=== PATIENT | male | born 1995 | race Caucasian/White ===

== ENCOUNTER → 2018-05-29 | Outpatient (CLI) | payer BC ==
--- NOTE | 2018-05-29 11:13 | US ---
EXAMINATION TYPE: US liver DATE OF EXAM: 05/29/2018 COMPARISON: NONE CLINICAL HISTORY: R74.8 Abnormal Liver Enzymes. Elevated liver enzymes EXAM MEASUREMENTS: Liver Length: 25.1 cm Gallbladder Wall: 0.3 cm CBD: 0.4 cm Right Kidney: 14.4 x 5.0 x 6.2 cm Extreme technical limitations due to patient's body habitus and overlying bowel content Pancreas: Obscured by bowel gas Liver: enlarged, unable to penetrate Gallbladder: stone = 1.8cm Evidence for sonographic Perla's sign: no CBD: limited evaluation Right Kidney: no evidence of hydronephrosis as visualized IMPRESSION: Limited exam. Coarse echotexture within the liver may be due to hepatic steatosis, hepato cellular disease, liver is enlarged. Cholelithiasis, borderline gallbladder wall thickening.
== END | disposition home or self-care (01) ==
LOC: RADUSWWP 09:38
PROVIDERS: ATTEND Internal Medicine
DX: R16.0 Hepatomegaly, not elsewhere classified (principal); K80.20 Calculus of gallbladder without cholecystitis without obstruction
CPT/HCPCS: 76705

== ENCOUNTER 2020-01-01 22:37 | Observation (INO) | payer BC, OTHER ==
--- NOTE | 2020-01-01 23:37 | XR ---
EXAMINATION TYPE: XR chest 2V DATE OF EXAM: 01/01/2020 COMPARISON: NONE HISTORY: Cough and fever TECHNIQUE: FINDINGS: There are patchy bilateral pulmonary airspace infiltrates. Heart and mediastinum are normal . There are no hilar masses. There is no sign of pleural effusion. IMPRESSION: Bilateral patchy pneumonia. Normal heart.
[2020-01-02] MEDS ORDERED: ACETAMINOPHEN TAB 500 MG TAB PO STA (00:18)
[2020-01-02 00:55] LABS: Glucose,Whole Blood 107 mg/dL (75-99)
[2020-01-02 01:13] LABS: Anisocytosis Slight; Basophils # (A) 0.1 k/uL (0-0.2); Basophils % (A) 2 %; Eosinophils # (A) 0.1 k/uL (0-0.7); Eosinophils % (A) 1 %; HCT 43.9 % (39.0-53.0); HGB 14.2 gm/dL (13.0-17.5); Lymphocytes # (A) 1.3 k/uL (1.0-4.8); Lymphocytes % (A) 29 %; MCH 24.4 pg (25.0-35.0); MCHC 32.3 g/dL (31.0-37.0); MCV 75.6 fL (80.0-100.0); Mean Platelet Volume 6.8; Microcytosis Slight; Monocytes # (A) 0.2 k/uL (0-1.0); Monocytes % (A) 5 %; Neutrophils # (A) 2.7 k/uL (1.3-7.7); Neutrophils % (A) 60 %; Platelet Count 169 k/uL (150-450); RBC 5.81 m/uL (4.30-5.90); WBC 4.4 k/uL (3.8-10.6)
[2020-01-02 01:26] LABS: ALT 82 U/L (4-49); AST 87 U/L (17-59); African American GFR (CKD) >90 (>60 ml/min/1.73 sqM); Albumin 3.8 g/dL (3.5-5.0); Alkaline Phosphatase 83 U/L (38-126); Anion Gap 6 mmol/L; Blood Urea Nitrogen 9 mg/dL (9-20); C Reactive Protein 16.7 mg/L (<10.0); Calcium 8.5 mg/dL (8.4-10.2); Carbon Dioxide 26 mmol/L (22-30); Chloride 104 mmol/L (98-107); Glucose 107 mg/dL (74-99); LDH 690 U/L (313-618); Non-African American GFR(CKD) >90 (>60 ml/min/1.73 sqM); Potassium 4.2 mmol/L (3.5-5.1); Sodium 136 mmol/L (137-145); Total Bilirubin 0.9 mg/dL (0.2-1.3); Total Protein 6.9 g/dL (6.3-8.2)
[2020-01-02 01:27] LABS: D-Dimer 0.29 mg/L FEU (<0.60); INR 0.9 (<1.2); Partial Thromboplastin Time 24.6 sec (22.0-30.0); Prothrombin Time 9.9 sec (9.0-12.0)
--- NOTE | 2020-01-02 02:01 | ED ---
General Adult HPI - General Source: patient, RN notes reviewed Mode of arrival: wheelchair Limitations: no limitations <Tyler Melgar - Last Filed: 01/02/20 02:13> <Trent Torres - Last Filed: 01/04/20 10:55> - General Chief complaint: Fever Stated complaint: fever, cough, sob Time Seen by Provider: 01/02/20 00:00 - History of Present Illness Initial comments: 24-year-old male with a past medical history of morbid obesity, asthma presents to the emergency room for a chief question shortness of breath. Patient reports his father is covid positive. He states that over the weekend he started to have a fever. States that he also developed a dry cough. Today however patient became short of breath. Feels like his asthma is acting up. Denies any sensation of wheezing however. Denies any chest pain.Patient has no other complaints at this time including shortness of breath, chest pain, abdominal pain, nausea or vomiting, headache, or visual changes. (Tyler Melgar) - Related Data Allergies Allergy/AdvReac Type Severity Reaction Status Date / Time No Known Allergies Allergy Verified 01/02/20 06:43 Review of Systems ROS Other: All systems not noted in ROS Statement are negative. <Tyler Melgar - Last Filed: 01/02/20 02:13> ROS Other: All systems not noted in ROS Statement are negative. <Trent Torres - Last Filed: 01/04/20 10:55> ROS Statement: Those systems with pertinent positive or pertinent negative responses have been documented in the HPI. Past Medical History Past Medical History: Asthma, GERD/Reflux History of Any Multi-Drug Resistant Organisms: None Reported Past Surgical History: Cholecystectomy Past Psychological History: No Psychological Hx Reported Smoking Status: Never smoker Past Alcohol Use History: None Reported Past Drug Use History: None Reported <Tyler Melgar - Last Filed: 01/02/20 02:13> General Exam Limitations: no limitations General appearance: alert, in no apparent distress Head exam: Present: atraumatic, normocephalic, normal inspection Eye exam: Present: normal appearance, PERRL, EOMI. Absent: scleral icterus, conjunctival injection, periorbital swelling ENT exam: Present: normal exam, mucous membranes moist Neck exam: Present: normal inspection, full ROM. Absent: tenderness, meningismus, lymphadenopathy Respiratory exam: Present: normal lung sounds bilaterally. Absent: respiratory distress, wheezes, rales, rhonchi, stridor Cardiovascular Exam: Present: regular rate, normal rhythm, normal heart sounds. Absent: systolic murmur, diastolic murmur, rubs, gallop, clicks GI/Abdominal exam: Present: soft, normal bowel sounds. Absent: distended, tenderness, guarding, rebound, rigid Neurological exam: Present: alert <Tyler Melgar - Last Filed: 01/02/20 02:13> Course Vital Signs 01/01/20 01/02/20 01/02/20 22:40 00:42 01:09 Temperature 99.3 F 99.3 F Pulse Rate 105 H 106 H Respiratory 22 20 Rate Blood Pressure 117/61 122/70 O2 Sat by Pulse 93 L 90 L 96 Oximetry 01/02/20 01/02/20 01/02/20 06:36 06:39 09:16 Temperature 99.4 F 98.6 F Pulse Rate 97 75 Respiratory 21 16 Rate Blood Pressure 142/84 142/79 O2 Sat by Pulse 94 L 100 Oximetry Medical Decision Making - Lab Data Result diagrams: 01/02/20 01:00 01/02/20 01:00 <Tyler Melgar - Last Filed: 01/02/20 02:13> - Lab Data Result diagrams: 01/02/20 01:00 01/02/20 01:00 <Trent Torres - Last Filed: 01/04/20 10:55> - Medical Decision Making Patient is well-appearing overdoes appears sightly short of breath. Pulse oxygenation at rest is 89-93%. No significant wheezing noted on lung exam. CBC unremarkable. CMP shows mild transaminitis. CRP 16.7. Lactate dehydrogenase 690. Chest x-ray shows a bilateral patchy pneumonia. Unfortunately Covid PCR was ordered as advanced triage instead of rapid. However given exposure, symptoms, and bilateral pneumonia and is assumed patient is Covid positive. Given patient's comorbidities and desaturation he will be admitted for further management. (Tyler Melgar) I saw this patient in conjunction with the physician carpenter assistant installer. I performed independent history and physical exam. Agree with case management. (Trent Torres) - Lab Data Lab Results 1101/02/20 01/02/20 Range/Units 00:48 01:00 01:00 WBC 4.4 (3.8-10.6) k/uL RBC 5.81 (4.30-5.90) m/uL Hgb 14.2 (13.0-17.5) gm/dL Hct 43.9 (39.0-53.0) % MCV 75.6 L (80.0-100.0) fL MCH 24.4 L (25.0-35.0) pg MCHC 32.3 (31.0-37.0) g/dL RDW 17.0 H (11.5-15.5) % Plt Count 169 (150-450) k/uL MPV 6.8 Neutrophils % 60 % Lymphocytes % 29 % Monocytes % 5 % Eosinophils % 1 % Basophils % 2 % Neutrophils # 2.7 (1.3-7.7) k/uL Lymphocytes # 1.3 (1.0-4.8) k/uL Monocytes # 0.2 (0-1.0) k/uL Eosinophils # 0.1 (0-0.7) k/uL Basophils # 0.1 (0-0.2) k/uL Anisocytosis Slight Microcytosis Slight PT (9.0-12.0) sec INR (<1.2) APTT (22.0-30.0) sec D-Dimer (<0.60) mg/L FEU Sodium 136 L (137-145) mmol/L Potassium 4.2 (3.5-5.1) mmol/L Chloride 104 (98-107) mmol/L Carbon Dioxide 26 (22-30) mmol/L Anion Gap 6 mmol/L BUN 9 (9-20) mg/dL Creatinine 0.75 (0.66-1.25) mg/dL Est GFR (CKD-EPI)AfAm >90 (>60 ml/min/1.73 sqM) Est GFR (CKD-EPI)NonAf >90 (>60 ml/min/1.73 sqM) Glucose 107 H (74-99) mg/dL POC Glucose (mg/dL) 107 H (75-99) mg/dL POC Glu Channeler Outsole Noris Soto Plasma Lactic Acid Checo (0.7-2.0) mmol/L Calcium 8.5 (8.4-10.2) mg/dL Magnesium 2.0 (1.6-2.3) mg/dL Ferritin 288.3 (22.0-322.0) ng/mL Total Bilirubin 0.9 (0.2-1.3) mg/dL AST 87 H (17-59) U/L ALT 82 H (4-49) U/L Alkaline Phosphatase 83 (38-126) U/L Lactate Dehydrogenase 690 H (313-618) U/L C-Reactive Protein 16.7 H (<10.0) mg/L Total Protein 6.9 (6.3-8.2) g/dL Albumin 3.8 (3.5-5.0) g/dL Procalcitonin (0.02-0.09) ng/mL 01/02/20 01/02/20 01/02/20 Range/Units 01:00 01:00 01:08 WBC (3.8-10.6) k/uL RBC (4.30-5.90) m/uL Hgb (13.0-17.5) gm/dL Hct (39.0-53.0) % MCV (80.0-100.0) fL MCH (25.0-35.0) pg MCHC (31.0-37.0) g/dL RDW (11.5-15.5) % Plt Count (150-450) k/uL MPV Neutrophils % % Lymphocytes % % Monocytes % % Eosinophils % % Basophils % % Neutrophils # (1.3-7.7) k/uL Lymphocytes # (1.0-4.8) k/uL Monocytes # (0-1.0) k/uL Eosinophils # (0-0.7) k/uL Basophils # (0-0.2) k/uL Anisocytosis Microcytosis PT 9.9 (9.0-12.0) sec INR 0.9 (<1.2) APTT 24.6 (22.0-30.0) sec D-Dimer 0.29 (<0.60) mg/L FEU Sodium (137-145) mmol/L Potassium (3.5-5.1) mmol/L Chloride (98-107) mmol/L Carbon Dioxide (22-30) mmol/L Anion Gap mmol/L BUN (9-20) mg/dL Creatinine (0.66-1.25) mg/dL Est GFR (CKD-EPI)AfAm (>60 ml/min/1.73 sqM) Est GFR (CKD-EPI)NonAf (>60 ml/min/1.73 sqM) Glucose (74-99) mg/dL POC Glucose (mg/dL) (75-99) mg/dL POC Glu Channeler Outsole ID Plasma Lactic Acid Checo 1.0 (0.7-2.0) mmol/L Calcium (8.4-10.2) mg/dL Magnesium (1.6-2.3) mg/dL Ferritin (22.0-322.0) ng/mL Total Bilirubin (0.2-1.3) mg/dL AST (17-59) U/L ALT (4-49) U/L Alkaline Phosphatase (38-126) U/L Lactate Dehydrogenase (313-618) U/L C-Reactive Protein (<10.0) mg/L Total Protein (6.3-8.2) g/dL Albumin (3.5-5.0) g/dL Procalcitonin 0.23 H (0.02-0.09) ng/mL Disposition Is patient prescribed a controlled substance at d/c from ED?: No Time of Disposition: 02:01 <Tyler Melgar - Last Filed: 01/02/20 02:13> <Trent Torres - Last Filed: 01/04/20 10:55> Clinical Impression: Suspected COVID-19 virus infection, Bilateral pneumonia, Hypoxia Disposition: ADMITTED IP TO THIS HOSP
[2020-01-02] MEDS ORDERED: NALOXONE 0.4 MG/ML 1 ML VIAL IV PRN (02:13)
[2020-01-02] MEDS ORDERED: AZITHROMYCIN 500 MG in SODIUM CHLORIDE 0.9% 250 ML IVPB STA (02:15)
[2020-01-02] MEDS ORDERED: cefTRIAXone IN SWFI 1,000 MG/10 ML SYRINGE IVP STA (02:15)
[2020-01-02] MEDS ORDERED: DEXAMETHASONE SOD PHOSPHATE 4 MG/ML 1 ML VIAL IV STA (02:15)
[2020-01-02] MEDS ORDERED: SODIUM CHLORIDE 0.9% 1,000 ML IV SCH (02:15)
--- NOTE | 2020-01-02 08:49 | P.CNPUL ---
History of Present Illness Consult date: 01/02/20 Requesting physician: Michelle Altman Reason for consult: dyspnea Chief complaint: Shortness of breath, cough congestion, fever History of present illness: This is a very pleasant 24-year-old male patient who follows with Dr. Carrero as his primary care physician. He has a history of obesity, asthma, prediabetes, GERD. He is maintained on Symbicort and albuterol in the outpatient setting. He is also on metformin. He also has a history of mild obstructive sleep apnea with apnea-hypopnea index of 9. He was recommended weight loss and optimization of his asthma. No CPAP in the outpatient setting. He is currently seen in the emergency room. He is awake and alert in no acute distress. He is having shortness of breath, dyspnea on minimal exertion. He is currently on 3 L/m per nasal cannula to maintain O2 saturations in the 90s. T-max 99.4. Chest x-ray reveals bilateral patchy pneumonia. White count 4.4. Hemoglobin 14.2. Platelet count 169. Lymphocytes 1.3. D-dimer 0.29. Sodium 136. Potassium 4.2. Glucose 107. LDH 690. C-reactive protein 16.7. He was given ceftriaxone and azithromycin. He was initiated on Decadron. 0.9 normal saline at 75 ML's per hour. His symptoms started 5 days ago. His CoVID 19 screen is pending. His father tested positive. Review of Systems REVIEW OF SYSTEMS: CONSTITUTIONAL: Generalized weakness, fatigue, fever. Denies any recent significant weight loss or weight gain. EYES: Denies change in vision. EARS, NOSE, MOUTH, THROAT: Denies headaches, denies sore throat. CARDIOVASCULAR: Denies chest pain, palpitations or syncopal episodes. RESPIRATORY: Positive for shortness of breath, cough, congestion no hemoptysis. GASTROINTESTINAL: Denies change in appetite, denies abdominal pain GENITOURINARY: Denies hematuria, denies infections. MUSKULOSKELETAL: Denies pain, denies swelling. INTEGUMENTARY: Denies rash, denies eczema. NEUROLOGICAL: Denies recent memory loss, no recent seizure activity. PSYCHIATRIC: Denies anxiety, denies depression. HEMATOLOGIC/LYMPHATIC: Denies anemia, denies enlarged lymph nodes. Past Medical History Past Medical History: Asthma, GERD/Reflux History of Any Multi-Drug Resistant Organisms: None Reported Past Surgical History: Cholecystectomy Past Psychological History: No Psychological Hx Reported Smoking Status: Never smoker Past Alcohol Use History: None Reported Past Drug Use History: None Reported Medications and Allergies Home Medications Medication Instructions Recorded Confirmed Type Albuterol Nebulized [Ventolin 2.5 mg INHALATION RT-Q6H PRN 01/02/20 01/02/20 History Nebulized] Albuterol Sulfate [Proair 2 puff INHALATION RT-Q6H PRN 01/02/20 01/02/20 History Respiclick] Budesonide/Formoterol Fumarate 2 puff INHALATION RT-BID 01/02/20 01/02/20 History [Symbicort 160-4.5 Mcg Inhaler] Loratadine-Pseudoeph 10-240 mg 1 tab PO DAILY PRN 01/02/20 01/02/20 History [Claritin-D 24 Hour] Montelukast [Singulair] 10 mg PO HS 01/02/20 01/02/20 History Omeprazole [PriLOSEC] 20 mg PO DAILY 01/02/20 01/02/20 History metFORMIN HCL 1,000 mg PO HS 01/02/20 01/02/20 History Allergies Allergy/AdvReac Type Severity Reaction Status Date / Time No Known Allergies Allergy Verified 01/02/20 06:43 Physical Exam Vitals: Vital Signs Temp Pulse Resp BP Pulse Ox 01/02/20 06:39 99.4 F 01/02/20 06:36 97 21 142/84 94 L 01/02/20 01:09 96 01/02/20 00:42 99.3 F 106 H 20 122/70 90 L 01/01/20 22:40 99.3 F 105 H 22 117/61 93 L Intake and Output 01/01/20 01/02/20 01/02/20 22:59 06:59 14:59 Other: Weight 233.6 kg GENERAL EXAM: Alert, pleasant 24-year-old obese gentleman, on 3 L nasal cannula comfortable in no apparent distress. HEAD: Normocephalic. EYES: Normal reaction of pupils, equal size. NOSE: Clear with pink turbinates. THROAT: No erythema or exudates. NECK: No masses, no JVD. CHEST: No chest wall deformity. LUNGS: Equal air entry with bilateral scattered rhonchi. CVS: S1 and S2 normal with no audible murmur, regular rhythm. ABDOMEN: No hepatosplenomegaly, normal bowel sounds, no guarding or rigidity. SPINE: No scoliosis or deformity SKIN: No rashes CENTRAL NERVOUS SYSTEM: No focal deficits, tone is normal in all 4 extremities. EXTREMITIES: There is no peripheral edema. No clubbing, no cyanosis. Peripheral pulses are intact. Results - Laboratory Findings CBC and BMP: 01/02/20 01:00 01/02/20 01:00 PT/INR, D-dimer PT 9.9 sec (9.0-12.0) 01/02/20 01:08 INR 0.9 (<1.2) 01/02/20 01:08 D-Dimer 0.29 mg/L FEU (<0.60) 01/02/20 01:08 Abnormal lab findings: Abnormal Labs 01/02/20 01/02/20 01/02/20 00:48 01:00 01:00 MCV 75.6 L MCH 24.4 L RDW 17.0 H Sodium 136 L Glucose 107 H POC Glucose (mg/dL) 107 H AST 87 H ALT 82 H Lactate Dehydrogenase 690 H C-Reactive Protein 16.7 H - Diagnostic Findings Chest x-ray: image reviewed Assessment and Plan Assessment: 1 Acute hypoxic respiratory failure secondary to bilateral pneumonia, possible Covid 19 pneumonitis, testing pending, pro-calcitonin pending 2 Elevated inflammatory markers secondary to above 3 Febrile illness secondary to above 4 Morbid obesity 5 Diabetes mellitus 6 Chronic bronchial asthma 7 GERD Plan: The patient was seen and evaluated by Dr. Mcclendon Chest x-ray and labs reviewed Continue dexamethasone He did receive antibiotics today Await testing results Titrate down the FiO2 as tolerated Repeat chest x-ray in a.m. We will continue to follow and make further recommendations based on his clinical status I, the cosigning physician, performed a history & physical examination of the patient. Lungs sounds with bilateral rhonchi. Maintaining good O2 saturations in the 90s on 3 L/m per nasal cannula. I discussed the assessment and plan of care with my nurse practitioner, Mamta Howard. I attest to the above consultation as dictated by her. Time with Patient: Greater than 30
[2020-01-02] MEDS ORDERED: ENOXAPARIN 40 MG/0.4 ML SYRINGE SQ SCH (09:00)
[2020-01-02] MEDS ORDERED: ASCORBIC ACID 500 MG TAB PO SCH (09:00)
[2020-01-02] MEDS ORDERED: ZINC SULFATE 220 MG CAP PO SCH (09:00)
[2020-01-02] MEDS ORDERED: CHOLECALCIFEROL 1,000 UNIT TAB PO SCH (09:00)
[2020-01-02] MEDS ORDERED: FAMOTIDINE 20 MG TAB PO SCH (09:00)
[2020-01-02 11:23] LABS: Ferritin 288.3 ng/mL (22.0-322.0)
[2020-01-02 14:08] VITALS: BP 158/88; PULSE 100; RESP 20; TEMP 98.8
--- NOTE | 2020-01-02 14:40 | P.HPIM ---
History of Present Illness Pleasant 44-year-old the male with history of asthma came in with complaints of increasing shortness of breath, fever found to have Covid 19. Saturations were low yesterday. Patient does have history of her obstructive sleep apnea as well. Obstructive sleep apnea is mild. 6 did not show any significant infiltrate patient was given a dose of Rocephin and azithromycin and was given Decadron with significant improvement in symptoms and patient is saturating 100% now. Will ambulate the patient if patient is saturating well and feeling well patient will be discharged today on a few more days of Decadron and patient is prediabetic his blood sugars are expected to go up while he is on Decadron. Patient was instructed to come back if his symptoms get worse. Patient's symptoms started around Tuesday. Patient chest x-ray did show bilateral infiltrate highly suspicious for Covid Review of Systems REVIEW OF SYSTEMS: CONSTITUTIONAL: No fever, no malaise, no fatigue. HEENT: No recent visual problems or hearing problems. Denied any sore throat. CARDIOVASCULAR: No chest pain, orthopnea, PND, no palpitations, no syncope. PULMONARY: As mentioned in HPI GASTROINTESTINAL: No diarrhea, no nausea, no vomiting, no abdominal pain. NEUROLOGICAL: No headaches, no weakness, no numbness. HEMATOLOGICAL: Denies any bleeding or petechiae. GENITOURINARY: Denies any burning micturition, frequency, or urgency. MUSCULOSKELETAL/RHEUMATOLOGICAL: Denies any joint pain, swelling, or any muscle pain. ENDOCRINE: Denies any polyuria or polydipsia. The rest of the 14-point review of systems is negative. Past Medical History Past Medical History: Asthma, GERD/Reflux History of Any Multi-Drug Resistant Organisms: None Reported Past Surgical History: Cholecystectomy Past Psychological History: No Psychological Hx Reported Smoking Status: Never smoker Past Alcohol Use History: None Reported Past Drug Use History: None Reported Medications and Allergies Home Medications Medication Instructions Recorded Confirmed Type Albuterol Nebulized [Ventolin 2.5 mg INHALATION RT-Q6H PRN 01/02/20 01/02/20 History Nebulized] Albuterol Sulfate [Proair 2 puff INHALATION RT-Q6H PRN 01/02/20 01/02/20 History Respiclick] Budesonide/Formoterol Fumarate 2 puff INHALATION RT-BID 01/02/20 01/02/20 History [Symbicort 160-4.5 Mcg Inhaler] Dexamethasone [Decadron] 6 mg PO DAILY #6 tablet 01/02/20 Rx Famotidine [Pepcid] 20 mg PO BID #20 tablet 01/02/20 Rx Loratadine-Pseudoeph 10-240 mg 1 tab PO DAILY PRN 01/02/20 01/02/20 History [Claritin-D 24 Hour] Montelukast [Singulair] 10 mg PO HS 01/02/20 01/02/20 History Omeprazole [PriLOSEC] 20 mg PO DAILY 01/02/20 01/02/20 History guaiFENesin-DM 100-10MG/5ML 5 ml PO QID PRN #100 ml 01/02/20 Rx [Robitussin DM] metFORMIN HCL 1,000 mg PO HS #0 01/02/20 01/02/20 Rx Allergies Allergy/AdvReac Type Severity Reaction Status Date / Time No Known Allergies Allergy Verified 01/02/20 06:43 Physical Exam Vitals: Vital Signs Temp Pulse Resp BP Pulse Ox 01/02/20 13:54 98.8 F 100 20 158/88 97 01/02/20 09:16 98.6 F 75 16 142/79 100 01/02/20 06:39 99.4 F 01/02/20 06:36 97 21 142/84 94 L 01/02/20 01:09 96 01/02/20 00:42 99.3 F 106 H 20 122/70 90 L 01/01/20 22:40 99.3 F 105 H 22 117/61 93 L Intake and Output 01/01/20 01/02/20 01/02/20 22:59 06:59 14:59 Other: Weight 233.6 kg PHYSICAL EXAMINATION: GENERAL: The patient is alert and oriented x3, not in any acute distress. Well developed, well nourished. HEENT: Pupils are round and equally reacting to light. EOMI. No scleral icterus. No conjunctival pallor. Normocephalic, atraumatic. No pharyngeal erythema. No thyromegaly. CARDIOVASCULAR: S1 and S2 present. No murmurs, rubs, or gallops. PULMONARY: Chest is clear to auscultation, no wheezing or crackles. ABDOMEN: Soft, nontender, nondistended, normoactive bowel sounds. No palpable organomegaly. MUSCULOSKELETAL: No joint swelling or deformity. EXTREMITIES: No cyanosis, clubbing, or pedal edema. NEUROLOGICAL: Gross neurological examination did not reveal any focal deficits. SKIN: No rashes. Note: Because of COVID 19 isolation, some of the history and physical exam findings are indirect and obtained from nursing staff, and other physician examinations to avoid unnecessary contact with the patient. Results CBC & Chem 7: 01/02/20 01:00 01/02/20 01:00 Labs: Abnormal Lab Results - Last 24 Hours (Table) 01/02/20 01/02/20 01/02/20 Range/Units 00:48 01:00 01:00 MCV 75.6 L (80.0-100.0) fL MCH 24.4 L (25.0-35.0) pg RDW 17.0 H (11.5-15.5) % Sodium 136 L (137-145) mmol/L Glucose 107 H (74-99) mg/dL POC Glucose (mg/dL) 107 H (75-99) mg/dL AST 87 H (17-59) U/L ALT 82 H (4-49) U/L Lactate Dehydrogenase 690 H (313-618) U/L C-Reactive Protein 16.7 H (<10.0) mg/L Assessment and Plan Plan: -Covid 19 pneumonia: Patient will be discharged on Decadron, patient was asked to come back to the hospital if his symptoms get worse. As of now he is saturating 100% on room air. -Obesity with body of 4 sleep apnea -Prediabetic days patient is on metformin for prediabetes patient blood sugars are expected to go up when he is on Decadron -History of bronchial asthma may have had exacerbation on admission but patient presently he is not in exacerbation -Gastroesophageal reflux disease
--- NOTE | 2020-01-02 14:41 | P.DS ---
Providers Date of admission: 01/02/20 03:03 Attending physician: Michelle Altman Consults: 01/02/20 02:14 Consult Physician Routine Consulting Provider: Adrián Mcclendon Consult Reason/Comments: presumed COVID+, hypoxia, SOB Do you want consulting provider notified?: Yes Primary care physician: Katia Carrero [facility] Course: Please refer to HPI for further details Plan - Discharge Summary New Discharge Prescriptions: New Dexamethasone [Decadron] 6 mg PO DAILY #6 tablet guaiFENesin-DM 100-10MG/5ML [Robitussin DM] 5 ml PO QID PRN #100 ml PRN Reason: Cough Famotidine [Pepcid] 20 mg PO BID #20 tablet Continue Budesonide/Formoterol Fumarate [Symbicort 160-4.5 Mcg Inhaler] 2 puff INHALATION RT-BID Albuterol Sulfate [Proair Respiclick] 2 puff INHALATION RT-Q6H PRN PRN Reason: Shortness Of Breath Albuterol Nebulized [Ventolin Nebulized] 2.5 mg INHALATION RT-Q6H PRN PRN Reason: Shortness Of Breath Montelukast [Singulair] 10 mg PO HS Loratadine-Pseudoeph 10-240 mg [Claritin-D 24 Hour] 1 tab PO DAILY PRN PRN Reason: Congestion Omeprazole [PriLOSEC] 20 mg PO DAILY metFORMIN HCL 1,000 mg PO HS #0 Discharge Medication List Albuterol Nebulized [Ventolin Nebulized] 2.5 mg INHALATION RT-Q6H PRN 01/02/20 [History] Albuterol Sulfate [Proair Respiclick] 2 puff INHALATION RT-Q6H PRN 01/02/20 [History] Budesonide/Formoterol Fumarate [Symbicort 160-4.5 Mcg Inhaler] 2 puff INHALATION RT-BID 01/02/20 [History] Dexamethasone [Decadron] 6 mg PO DAILY #6 tablet 01/02/20 [Rx] Famotidine [Pepcid] 20 mg PO BID #20 tablet 01/02/20 [Rx] Loratadine-Pseudoeph 10-240 mg [Claritin-D 24 Hour] 1 tab PO DAILY PRN 01/02/20 [History] Montelukast [Singulair] 10 mg PO HS 01/02/20 [History] Omeprazole [PriLOSEC] 20 mg PO DAILY 01/02/20 [History] guaiFENesin-DM 100-10MG/5ML [Robitussin DM] 5 ml PO QID PRN #100 ml 01/02/20 [Rx] metFORMIN HCL 1,000 mg PO HS #0 01/02/20 [Rx] Follow up Appointment(s)/Referral(s): Katia Carrero MD [Primary Care Provider] - 3 Days Discharge Disposition: HOME SELF-CARE
[2020-01-02] MEDS ORDERED: MELATONIN 5 MG TABLET PO SCH (21:00)
[2020-01-03] MEDS ORDERED: DEXAMETHASONE SOD PHOSPHATE 10 MG/ML 1 ML VIAL IV SCH (09:00)
== END 2020-01-02 18:26 | disposition home or self-care (01) ==
LOC: EC 22:37 → INTOOBSV 01-02 03:03 → 4SSUR 01-02 03:03 → UNDODISIN 01-02 18:26
PROVIDERS: ADMIT Hospitalist; ATTEND Hospitalist
DX: U07.1 COVID-19 (principal); J12.89 Other viral pneumonia; J96.01 Acute respiratory failure with hypoxia; E11.9 Type 2 diabetes mellitus without complications; J45.909 Unspecified asthma, uncomplicated; G47.33 Obstructive sleep apnea (adult) (pediatric); K21.9 Gastro-esophageal reflux disease without esophagitis; Z90.49 Acquired absence of other specified parts of digestive tract; Z79.899 Other long term (current) drug therapy; Z79.84 Long term (current) use of oral hypoglycemic drugs; E66.01 Morbid (severe) obesity due to excess calories; Z68.43 Body mass index [BMI] 50.0-59.9, adult
CPT/HCPCS: 96361; 96365; 96372; 96375; 99285; 36415; 93005; 85379; 80053; 82728; 83605; 83615; 83735; 85025; 85610; 85730; 86140; 87040; 84145; 71046; G0378; U0003; J1100; J0456; J1650; J0696

== ENCOUNTER → 2022-12-15 | Day surgery (SDC) | payer OTHER ==
[2022-12-13 13:41] VITALS: BMI 55.5
[~2022-12-15] MED LIST: DEXAMETHASONE SOD PHOSPHATE 4 MG/ML 1 ML VIAL IV ONE; DEXAMETHASONE SOD PHOSPHATE 4 MG/ML 1 ML VIAL ONE; GLYCOPYRROLATE 0.2 MG/ML 2 ML VIAL ONE; HYDROmorphone 0.5 MG/0.5 ML SYRINGE IVP PRN; LACTATED RINGERS 1,000 ML IV SCH; LIDOCAINE 1% (10MG/ML) FOR IV START INTRADERMA PRN; LIDOCAINE 1% INJ 10MG/ML (20 ML MDV) ONE; LIDOCAINE 2% SYG (PF) 100 MG/5 ML IV ONE; MIDAZOLAM 2 MG/2 ML VIAL IV PRN; NEOSTIGMINE 1 MG/ML 10 ML VIAL ONE; ONDANSETRON 4 MG/2 ML VIAL IVP ONE; PROPOFOL 10 MG/ML 20 ML VIAL IV ONE; ROCURONIUM 10 MG/ML (5 ML VIAL) IV ONE; ROPIVACAINE 5 MG/ML 30 ML VIAL ONE; SODIUM CHLORIDE 0.9% (PF) 10 ML VIAL ONE; SUCCINYLCHOLINE CHLORIDE 200 MG/10 ML VIAL IV ONE; ceFAZolin 3 GM in SODIUM CHLORIDE 0.9% 100 ML IVPB PRN; fentaNYL (PF) 50 MCG/ML 2 ML AMP ONE
[2022-12-15 07:25] VITALS: RESP 16
[2022-12-15 07:49] LABS: Glucose,Whole Blood 99 mg/dL (70-110)
--- NOTE | 2022-12-15 08:52 | P.ANPRN ---
Procedure Note - Anesthesia - Nerve Block Performed Left Adductor Canal Single Time Out Performed: Yes (0800) Date of Procedure: 12/15/22 Procedure Start Time: 08:02 Procedure Stop Time: 08:12 Location of Patient: PreOp Indication: Acute Post-Operative Pain, Requested by Surgeon Sedation Type: Sedate with meaningful contact maintained Preparation: Sterile Prep Position: Supine Catheter: None Needle Types: Pajunk Needle Gauge: 21 Ultrasound used to visualize needle placement: Yes Ultrasound used to observe medication spread: Yes Injectate: 0.5% Ropivacaine (see comment for volume) (10 ML of 0.5% preservative-free bupivacaine mixed with 10 ML of preservative-free normal saline) Blood Aspirated: No Pain Paresthesia on Injection Noted: No Image Stored and Saved: Yes Events: Uneventful and Well Tolerated
--- NOTE | 2022-12-15 08:53 | P.ANPRN ---
Procedure Note - Anesthesia - Nerve Block Performed Left Popliteal Single Time Out Performed: Yes (0800) Date of Procedure: 12/15/22 Procedure Start Time: :02 Procedure Stop Time: 08:12 Location of Patient: PreOp Indication: Acute Post-Operative Pain, Requested by Surgeon Sedation Type: Sedate with meaningful contact maintained Preparation: Sterile Prep Position: Right Lateral Catheter: None Needle Types: Pajunk Needle Gauge: 21 Ultrasound used to visualize needle placement: Yes Ultrasound used to observe medication spread: Yes Injectate: 0.5% Ropivacaine (see comment for volume) Blood Aspirated: No Pain Paresthesia on Injection Noted: No Resistance on Injection: Normal Image Stored and Saved: Yes Events: Uneventful and Well Tolerated (20 mL of 0.5% preservative-free ropivacaine mixed with 4 mg of dexamethasone)
[2022-12-15 10:02] VITALS: TEMP 97.1
[2022-12-15 10:53] LABS: ALT 22 U/L (4-49); AST 26 U/L (17-59); African American GFR (CKD) >90 (>60 ml/min/1.73 sqM); Albumin 3.7 g/dL (3.5-5.0); Alkaline Phosphatase 66 U/L (38-126); Anion Gap 9 mmol/L; Blood Urea Nitrogen 21 mg/dL (9-20); Calcium 9.1 mg/dL (8.4-10.2); Carbon Dioxide 26 mmol/L (22-30); Chloride 107 mmol/L (98-107); Glucose 108 mg/dL (74-99); Non-African American GFR(CKD) >90 (>60 ml/min/1.73 sqM); Potassium 4.7 mmol/L (3.5-5.1); Sodium 142 mmol/L (137-145); Total Bilirubin 0.8 mg/dL (0.2-1.3); Total Protein 6.5 g/dL (6.3-8.2)
[2022-12-15 11:44] VITALS: BP 108/65; PULSE 66
--- NOTE | 2022-12-16 10:07 | P.OP ---
Date of Procedure: 12/15/22 Preoperative Diagnosis: Displaced fifth metatarsal fracture left foot Postoperative Diagnosis: Same Procedure(s) Performed: Open reduction with internal fixation left fifth metatarsal fracture Implants: Arthrex 5.5 x 65mm screw Anesthesia: YOLIS Surgeon: Cruzito Hankins Estimated Blood Loss (ml): 1 Pathology: none sent Condition: stable Disposition: PACU Description of Procedure: Prior to the patient being brought to the operating room, anesthesia admin istered a nerve block on the affected lower extremity. The patient was brought into the operation room and placed on the table in the supine position. Time out was taken to confirm correct patient identifiers, correct procedure and correct laterality of procedure. Once all staff in the room were in agreement with the timeout, the patient was induced and placed under general anesthesia. A well padded tourniquet was applied to the calf. A bump was placed under the hip to internally rotated the leg. The patient was secured to the table and then the leg was prepped and draped in the usual manner. The leg was was exanguinated and the tourniquet inflated to 250mmHg. Using fluoroscopic guidance, the base of the fifth metatarsal was identified and then an incision was made laterally proximal to the metatarsal base. Blunt dissection was done down to the proximal aspect of the fifth metatarsal base. A guidewire was positioned at the proximal base, in line with the long axis of the metatarsal. The wire was advanced into the base and then fluoroscopy was used to check the alignment on the AP, oblique and lateral views. Once it appeared that the wire would travel down the medullary canal, the wire was advanced under oscillation past the fracture, and to the secondary curvature. Fluoroscopy was used to confirm the final position of the wire. The canal was then reamed with a 3.5 mm drill, which was then followed by a 4.0mm drill. The drill was removed and the wire left in place. Measurements were done on the wire for the proper length screw. The tap for the 5.5mm screw was placed over the wire and advanced to the end point of the wire. The tap and wire were removed. 1.5mL of Augment was injected directly into the canal under fluoroscopic guidance. A 5.5mm x 65mm partially threaded screw was placed in the drill hole and advanced until the head engaged the metatarsal base, the threads were distal to the fracture line, and the fracture compressed. Final fluoroscopic imaging confirmed the proper placement of the screw. The incision was thoroughly irrigated. The incision was closed with 3-0 nylon. Non-adherent gauze was placed over the incision and then a dry sterile dressing applied to the foot. The tourniquet was released and capillary refill returned to the digits. The patient tolerated the above procedure and anesthesia well. Anesthesia was reversed and the patient taken to recovery with vital signs stable.
== END | disposition home or self-care (01) ==
LOC: OR 06:51
PROVIDERS: ATTEND Podiatrist
DX: S92.352A Displaced fracture of fifth metatarsal bone, left foot, initial encounter for closed fracture (principal); J45.909 Unspecified asthma, uncomplicated; G47.33 Obstructive sleep apnea (adult) (pediatric); Z79.899 Other long term (current) drug therapy; F10.90 Alcohol use, unspecified, uncomplicated; Z86.16 Personal history of COVID-19; Z79.51 Long term (current) use of inhaled steroids; X58.XXXA Exposure to other specified factors, initial encounter
CPT/HCPCS: 93005; 64447; 64445; 80053; 28485; C1713 ×2; J2250; J0330; J1100; J2710; J2405; J2001 ×2; J3010; J2795; J2704

== ENCOUNTER → 2022-12-15 | Outpatient (CLI) | payer OTHER | END | disposition home or self-care (01) | LOC: LABWHC1 06:48 | PROVIDERS: ATTEND Podiatrist | DX: Z53.9 Procedure and treatment not carried out, unspecified reason (principal) ==